=== PATIENT | female | born 1995 | race Caucasian/White ===

== ENCOUNTER 2019-03-02 12:56 | Day surgery (SDC) | payer OTHER ==
[~2019-03-02] VITALS: Ht 157.5 cm; Wt 52.6 kg
[2019-03-02 13:10] VITALS: BP_SYST 110
[2019-03-02 14:10] LABS: BASOPHILS % (AUTO) 0.3 % (0.0-2.0); EOSINOPHILS # (AUTO) 0.1 K/uL (0.0-0.4); EOSINOPHILS % (AUTO) 0.8 % (0.0-4.0); HEMATOCRIT 39.4 % (36-48); HEMOGLOBIN 13.4 g/dL (12.0-16.0); LYMPHOCYTES # (AUTO) 2.4 K/uL (1.0-5.5); LYMPHOCYTES % (AUTO) 31.5 % (20.5-51.5); MEAN CORPUSCULAR HEMOGLOBIN 33 pg (27-31); MEAN CORPUSCULAR HGB CONC 34 % (32-36); MEAN CORPUSCULAR VOLUME 98 fL (79.0-98.0); MONOCYTES # (AUTO) 0.7 K/uL (0.0-1.0); NEUTROPHILS # (AUTO) 4.4 K/uL (1.8-7.7); NEUTROPHILS % (AUTO) 58.4 % (40.0-70.0); PLATELET COUNT (AUTO) 196 K/uL (130-430); RED BLOOD CELL COUNT(AUTO) 4.02 MIL/uL (4.2-6.2); RED CELL DISTRIBUTION WIDTH 12.1 % (9.0-15.0); WHITE BLOOD COUNT (AUTO) 7.6 K/uL (4.8-10.8)
[2019-03-02 14:15] LABS: CALCIUM 8.8 mg/dL (8.4-11.0); CREATININE 0.65 mg/dL (0.55-1.30); POTASSIUM 3.6 mmol/L (3.5-5.1)
[2019-03-02 14:22] LABS: PROTHROMBIN TIME 10.5 SECS (9.5-12.5)
[2019-03-02 14:41] LABS: ALBUMIN 3.9 g/dL (3.4-4.8); TOTAL BILIRUBIN 0.4 mg/dL (0.0-1.0)
[2019-03-02] MEDS ORDERED: CEFAZOLIN 2 GM IVPB PREMIX 50 ML IV ONE (15:45)
[2019-03-02] MEDS ORDERED: NACL 0.9% 1,000 ML IV ONE (15:45)
[2019-03-02] MEDS ORDERED: CEFAZOLIN 1 GM IVPB PREMIX 100 ML IV ONE (16:03)
[2019-03-02] MEDS ORDERED: NS IRRIG SOLN 1000 ML IR ONE (16:30)
[2019-03-02] MEDS ORDERED: ROCURONIUM BROMIDE 10 MG/ML (ZEMURON) IV ONE (16:30)
[2019-03-02] MEDS ORDERED: fentaNYL CITRATE 250 MCG/5 ML AMP IV ONE (16:30)
[2019-03-02] MEDS ORDERED: DEXAMETHASONE SOD PHOSPHATE 4 MG/ML VIAL IVP ONE (16:30)
[2019-03-02] MEDS ORDERED: KETOROLAC TROMETHAMINE 30 MG VIAL IVP ONE (16:30)
[2019-03-02] MEDS ORDERED: SUGAMMADEX SODIUM 200 MG/2 ML VIAL IV ONE (16:30)
[2019-03-02] MEDS ORDERED: ONDANSETRON HCL 4 MG/2 ML VIAL IVP ONE (16:30)
[2019-03-02] MEDS ORDERED: PROPOFOL 200MG/ 20ML VIAL (DIPRIVAN) IV ONE (16:30)
[2019-03-02] MEDS ORDERED: MIDAZOLAM HCL 5 MG/5 ML VIAL IVP ONE (16:30)
[2019-03-02] MEDS ORDERED: SEVOFLURANE 15 MIN GAS INH ONE (16:30)
[2019-03-02] MEDS ORDERED: LR 1,000 ML IV.SOLN IV ONE (16:30)
[2019-03-02] MEDS ORDERED: OXYCODONE/ACETAMINOPHEN 5-325 TABLET PO PRN (17:30)
[2019-03-02] MEDS ORDERED: HYDROcodone/ACETAMIN 5-325 MG TAB (NORCO/ VICODIN) PO PRN (17:30)
[2019-03-02] MEDS ORDERED: LR 1,000 ML IV SCH (17:30)
[2019-03-02] MEDS ORDERED: ONDANSETRON HCL 4 MG/2 ML VIAL IM PRN (17:30)
[2019-03-02] MEDS ORDERED: HYDROmorphone 2 MG/ML VIAL IVP PRN ×2 (17:30)
[2019-03-02] MEDS ORDERED: MEPERIDINE HCL/PF 25 MG/ML DISP.SYRIN IVP PRN (17:30)
[2019-03-02] MEDS ORDERED: HYDROmorphone 1 MG INJ. 1 MG/ML AMPUL IVP PRN (17:30)
[2019-03-02 17:40] VITALS: BP_SYST 109
== END 2019-03-02 20:52 | disposition home or self-care (01) ==
LOC: SED 12:56 → SDS 16:04
PROVIDERS: ATTEND Specialist
DX: O00.80 Other ectopic pregnancy without intrauterine pregnancy (principal); O73.1 Retained portions of placenta and membranes, without hemorrhage; Z3A.01 Less than 8 weeks gestation of pregnancy; Z79.01 Long term (current) use of anticoagulants
CPT/HCPCS: 36415; 76801; 76817; 80053; 84702-TC; 85025; 85610-TC; 85730-TC; 86900; 86901; 88305; C1727; C9399; J0690; J1100; J1885; J2250; J2405; J2704; J3010; J7030; J7120

== ENCOUNTER 2019-03-05 09:09 | Inpatient (IN) | payer OTHER ==
[2019-03-05] VITALS (10 sets, daily range): BP systolic 77–107
[~2019-03-05] VITALS: Ht 157.5 cm; Wt 49.0 kg
[2019-03-05 11:32] LABS: BASOPHILS % (AUTO) 0.5 % (0.0-2.0); EOSINOPHILS # (AUTO) 0.1 K/uL (0.0-0.4); EOSINOPHILS % (AUTO) 0.6 % (0.0-4.0); HEMATOCRIT 37.7 % (36-48); HEMOGLOBIN 12.8 g/dL (12.0-16.0); LYMPHOCYTES # (AUTO) 2.3 K/uL (1.0-5.5); LYMPHOCYTES % (AUTO) 21.9 % (20.5-51.5); MEAN CORPUSCULAR HEMOGLOBIN 33 pg (27-31); MEAN CORPUSCULAR HGB CONC 34 % (32-36); MEAN CORPUSCULAR VOLUME 98 fL (79.0-98.0); MONOCYTES # (AUTO) 0.6 K/uL (0.0-1.0); MONOCYTES % (AUTO) 5.3 % (1.7-9.3); NEUTROPHILS # (AUTO) 7.5 K/uL (1.8-7.7); NEUTROPHILS % (AUTO) 71.7 % (40.0-70.0); PLATELET COUNT (AUTO) 203 K/uL (130-430); RED BLOOD CELL COUNT(AUTO) 3.85 MIL/uL (4.2-6.2); RED CELL DISTRIBUTION WIDTH 12.3 % (9.0-15.0); WHITE BLOOD COUNT (AUTO) 10.4 K/uL (4.8-10.8)
[2019-03-05 11:47] LABS: CREATININE 0.58 mg/dL (0.55-1.30); POTASSIUM 4.1 mmol/L (3.5-5.1)
[2019-03-05 11:51] LABS: PROTHROMBIN TIME 10.5 SECS (9.5-12.5)
[2019-03-05 12:17] LABS: ALBUMIN 3.6 g/dL (3.4-4.8); TOTAL BILIRUBIN 0.4 mg/dL (0.0-1.0)
[2019-03-05 12:20] LABS: CALCIUM 8.8 mg/dL (8.4-11.0)
[2019-03-05] MEDS ORDERED: CEFAZOLIN 1 GM IVPB PREMIX 50 ML IV ONE (15:30)
[2019-03-05] MEDS ORDERED: MIDAZOLAM HCL 5 MG/5 ML VIAL IVP ONE (15:30)
[2019-03-05] MEDS ORDERED: ROCURONIUM BROMIDE 10 MG/ML (ZEMURON) IV ONE (15:30)
[2019-03-05] MEDS ORDERED: ONDANSETRON HCL 4 MG/2 ML VIAL IVP PRN (15:30)
[2019-03-05] MEDS ORDERED: SEVOFLURANE 15 MIN GAS INH ONE (15:30)
[2019-03-05] MEDS ORDERED: NS IRRIG SOLN 1000 ML IR ONE (15:30)
[2019-03-05] MEDS ORDERED: GLYCOPYRROLATE 0.2 MG/ML VIAL IJ ONE (15:30)
[2019-03-05] MEDS ORDERED: ONDANSETRON HCL 4 MG/2 ML VIAL IVP ONE (15:30)
[2019-03-05] MEDS ORDERED: LR 1,000 ML IV.SOLN IV ONE (15:30)
[2019-03-05] MEDS ORDERED: fentaNYL CITRATE/PF 100 MCG/2 ML AMP IVP ONE (15:30)
[2019-03-05] MEDS ORDERED: KETOROLAC TROMETHAMINE 30 MG VIAL IVP ONE (15:30)
[2019-03-05] MEDS ORDERED: fentaNYL CITRATE/PF 100 MCG/2 ML AMP IVP PRN ×2 (15:30)
[2019-03-05] MEDS ORDERED: ONDANSETRON HCL 4 MG/2 ML VIAL IM PRN (17:00)
[2019-03-05] MEDS ORDERED: OXYCODONE/ACETAMINOPHEN 5-325 TABLET PO PRN ×2 (17:00)
[2019-03-05] MEDS ORDERED: fentaNYL CITRATE/PF 100 MCG/2 ML AMP ONE (17:52)
[2019-03-06] MEDS ORDERED: NS 500 ML IV SCH
[2019-03-06] MEDS: NACL 0.9% 1,000 ML IV SCH ×4 (00:16→09:03)
[2019-03-06 00:17] LABS: HEMATOCRIT 30.7 % (36-48); HEMOGLOBIN 10.2 g/dL (12.0-16.0)
[2019-03-06 00:20] VITALS: BP_SYST 93
[2019-03-06] MEDS: HYDROcodone/ACETAMIN 5-325 MG TAB (NORCO/ VICODIN) PO PRN ×2 (00:56→11:14)
[2019-03-06] MEDS ORDERED: HETASTARCH/NORMAL SALINE 500 ML IV ONE ×2 (01:30→01:42)
[2019-03-06 04:50] VITALS: BP_SYST 93
[2019-03-06 06:35] VITALS: BP_SYST 85
[2019-03-06 08:00] VITALS: BP_SYST 97
[2019-03-06 08:14] LABS: BASOPHILS % (AUTO) 0.2 % (0.0-2.0); EOSINOPHILS # (AUTO) 0.1 K/uL (0.0-0.4); EOSINOPHILS % (AUTO) 0.7 % (0.0-4.0); HEMOGLOBIN 9.3 g/dL (12.0-16.0); LYMPHOCYTES % (AUTO) 26.9 % (20.5-51.5); MEAN CORPUSCULAR HEMOGLOBIN 34 pg (27-31); MEAN CORPUSCULAR HGB CONC 34 % (32-36); MEAN CORPUSCULAR VOLUME 99 fL (79.0-98.0); MONOCYTES # (AUTO) 0.6 K/uL (0.0-1.0); MONOCYTES % (AUTO) 7.6 % (1.7-9.3); NEUTROPHILS # (AUTO) 4.9 K/uL (1.8-7.7); NEUTROPHILS % (AUTO) 64.6 % (40.0-70.0); PLATELET COUNT (AUTO) 135 K/uL (130-430); RED BLOOD CELL COUNT(AUTO) 2.74 MIL/uL (4.2-6.2); RED CELL DISTRIBUTION WIDTH 12.2 % (9.0-15.0)
[2019-03-06 08:18] LABS: WHITE BLOOD COUNT (AUTO) 7.6 K/uL (4.8-10.8)
[2019-03-06] MEDS ORDERED: SIMETHICONE 80 MG TAB.CHEW PO PRN (09:30)
[2019-03-06 12:22] VITALS: BP_SYST 107
[2019-03-06 12:34] VITALS: BP_SYST 106
== END 2019-03-06 14:00 | disposition home or self-care (01) | DRG 819 ==
LOC: SED 09:09 → SOR 12:50 → SMU 13:19
PROVIDERS: ADMIT Specialist; ATTEND Specialist
PROC: 0UB64ZZ Excision of Left Fallopian Tube, Percutaneous Endoscopic Approach (ICD-10-PCS; 2019-03-05)
PROC: 10T24ZZ Resection of Products of Conception, Ectopic, Percutaneous Endoscopic Approach (ICD-10-PCS; principal; 2019-03-05 15:30)
DX: O00.80 Other ectopic pregnancy without intrauterine pregnancy (principal)
CPT/HCPCS: 36415; 76801; 76817; 80053; 84702-TC; 85018-TC; 85025; 85610-TC; 85730-TC; 87081; 88305; 94010; 99285; J0690; J1885; J2250; J2405; J3010; J3490; J7030; J7040; J7120